=== PATIENT | female | born 1990 | race Hispanic/Latino ===

== ENCOUNTER 2023-02-20 13:57 | Emergency (ER) | payer OTHER, SELFPAY ==
--- NOTE | ~2023-02-20 | CT_ITS ---
EXAMINATION: CT abdomen pelvis w con DATE: 02/20/2023 15:10 INDICATION: Left lower quadrant abdominal pain. TECHNIQUE: Computed tomography (CT) of the abdomen and pelvis was performed with 100 mL Omnipaque-350 intravenous contrast. Automated exposure control and iterative reconstruction technique were employe d. The dose-length product was 181.53 mGy-cm. COMPARISON: None FINDINGS: Lung bases are clear. Heart size is normal. No pericardial or pleural effusion. Liver, gallbladder, s pleen, pancreas, bilateral adrenal glands and kidneys are normal. Bowels are normal with no abnormal wall thickening or obstruction. The appendix is not visualized. No pericecal inflammatory change to s uggest acute appendicitis. Bladder, anteverted uterus and left adnexa are unremarkable. 1.3 cm right ovarian cyst/follicle. Minimal likely physiologic free fluid in the cul-de-sac. No abscess or free in traperitoneal gas. No pathologically enlarged abdominal or pelvic lymphadenopathy. Bones are unremark able. IMPRESSION: 1. No acute intra-abdominal/pelvic process. Reviewed, dictated and finalized at location A.
[2023-02-20 14:01] VITALS: BP 116/83; PULSE 104; RESP 16; TEMP 36.6; O2SAT 100
[2023-02-20 14:22] LABS: Basophils Absolute Auto 0.1 K/mm3 (0.0-0.1); Basophils Percent Auto 0.4 % (0.2-1.2); Eosinophils Absolute Auto 0.1 K/mm3 (0-0.3); Eosinophils Percent Auto 1.1 % (0-4.4); Hemoglobin 14.1 g/dL (12.0-15.0); Immature Granulocyte Absolute 0.05 K/mm3 (0.00-0.031); Immature Granulocyte Percent A 0.4 % (0-0.5); Lymphocytes Absolute Auto 2.03 K/mm3 (0.9-3.2); Lymphocytes Percent Auto 17.8 % (18.3-44.2); Mean Corpuscular HGB Conc 34.4 g/dl (32-36); Mean Corpuscular Hemoglobin 32.4 pg (26-34); Mean Corpuscular Volume 94.3 fl (80-100); Mean Platelet Volume 9.3 fl (7.4-10.4); Monocytes Absolute Auto 0.7 K/mm3 (0.1-0.6); Monocytes Percent Auto 6.2 % (2.6-8.5); Neutrophils Absolute Auto 8.4 K/mm3 (1.3-6.7); Neutrophils Percent Auto 74.1 % (45.5-73.1); Platelet Count Result 262 k/mm3 (150-375); Red Blood Count 4.35 M/mm3 (4.2-5.4); Red Cell Distribution Width 12.4 % (11.5-14.5); White Blood Count 11.4 K/mm3 (4.5-10.0)
[2023-02-20 14:28] LABS: Appearance Urine Clear (Clear); Bacteria Urine None Seen /hpf; Bilirubin Urine Negative (Negative); Blood Urine 2+ (Negative); Color Urine Yellow (Yellow); Glucose Urine UA Negative (Negative); Ketones Urine Negative (Negative); Leukocyte Esterase Ur Negative LEU/UL (Negative); Nitrate Urine Negative (Negative); Non Pathogenic Casts 0-2; Protein Urine Negative (Negative); RBC Urine 21-50 /hpf (0-2); Specific Grav Ur 1.011 (1.001-1.035); Squamous Epithelial Cell Urine Occasional /hpf (Few); Urobilinogen Urine 0.2 mg/dL (<2.0); WBC Urine 0-5 /hpf; pH Urine 7.5 (5.0-9.0)
[2023-02-20 14:32] LABS: Add Urine Microscopic? YES
[2023-02-20 14:38] LABS: Alanine Aminotransferase 21 U/L (6-35); Alkaline Phosphatase 70 U/L (38-126); Anion Gap 7 mmol/L (8-16); Aspartate Amino Transferase 26 U/L (14-36); Bilirubin,Total 0.7 mg/dL (0.2-1.3); Blood Urea Nitrogen 9 mg/dL (7-17); Calcium 9.3 mg/dL (8.4-10.2); Carbon Dioxide 32 mmol/L (22-30); Chloride 100 mmol/L (98-107); Estimated CRCL calculation 90 ml/min; Estimated Glomerular Filt Rate > 60; Glucose 94 mg/dL (65-110); Lipase 47 U/L (23-300); Potassium 3.7 mmol/L (3.4-5.0); Sodium 139 mmol/L (137-145)
[2023-02-20] MEDS: SODIUM CHLORIDE 0.9% IV 1,000 ML 999 ML IV CONT (14:49)
[2023-02-20] MEDS: MORPHINE SULFATE (*CRX) 4 MG/ML INJ 2 MG IV PUSH (14:50)
--- NOTE | 2023-02-20 16:01 | ED.ABDPAIN ---
HPI - Abdominal Pain General Chief Complaint: Abdominal Pain Stated Complaint: abdominal pain Time Seen by Provider: 02/20/23 14:19 History of Present Illness HPI narrative: Patient is a 32-year-old female who presents ER with lower abdominal pain. Waxing waning over the last week. Is been on the left side but is now moved up to the right side. No urinary frequency urgency or dysuria. 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 She has had some minor spotting since then no discharge. Does not believe that this was related to her abdominal discomfort as the pain was before the procedure. Patient is supposed to have an outpatient ultrasound performed to evaluate for cyst. She has history of ovarian cyst which cause pain in the past as well. No history of kidney stone. Related Data Home Medications Medication Instructions Recorded Confirmed No Home Medications 02/01/23 02/01/23 Allergies Allergy/AdvReac Type Severity Reaction Status Date / Time No Known Allergies Allergy Verified 02/20/23 13:57 Review of Systems Review of Systems: All systems reviewed & are unremarkable except as noted in HPI and below Constitutional: Constitutional: Denies chills, Denies fatigue and Denies fever(s) ENT: Denies nasal congestion and Denies sore throat Cardiovascular: Cardiovascular: Denies chest pain Gastrointestinal: Gastrointestinal: Reports abdominal pain, Denies constipation, Denies diarrhea, Denies nausea and Denies vomiting Genitourinary: Genitourinary: Reports abnormal vaginal bleeding, Denies nocturia, Denies dysuria, Reports pelvic pain and Denies flank pain PMFSH Past Medical History Medical History Abnormal Pap smear of cervix Surgical History Surgical History Hx of ovarian cystectomy Social History Social History Smoking status: Never smoker Alcohol intake: current Alcohol use details: occasional Substance use: current Substance use type: marijuana Lack of Transportation: No Lack of Food: Never True Current Housing: I Have Housing Concerned About Future Housing: No Difficulty Paying Gas/Electric Bills: No Difficulty Paying for Meds: No Currently Unemployed: YES Education: Bachelor's Degree Difficulty w/ Childcare or Family Care: No Living arrangements: with family Occupation/Education: unemployed Gender identity (if verbalized by the patient): Female Sexual Orientation (if Verbalized by the Patient): Straight or Heterosexual Exam Narrative: GENERAL: Well-appearing, well-nourished, and in no acute distress. HEAD: Normocephalic, atraumatic. EYES: PERRL and EOMI. ENT: Mucous membranes moist. CHEST: Clear to auscultation. No respiratory distress. HEART: Regular rate and rhythm. Normal peripheral pulses. ABDOMEN: Soft, nontender, nondistended. EXTREMITIES: Normal range of motion. No edema. SKIN: Warm, dry, no rash. NEURO: Alert and oriented x3. PSYCH: Normal mood and affect. Course Course Emergency Course: Patient educated on lab and imaging findings. Patient's abdomen is soft and nontender. 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 Due to lack of pain and nontender abdomen its not felt a emergent ultrasound for ovarian torsion is needed. Educated on return precautions and patient verbalized understanding. Vital Signs Vital signs: Vital Signs Temperature 97.9 F 02/20/23 14:01 Pulse Rate 104 H 02/20/23 14:01 Respiratory Rate 16 02/20/23 14:01 Blood Pressure 116/83 02/20/23 14:01 Pulse Oximetry 100 02/20/23 14:01 Oxygen Delivery Room Air 02/20/23 14:01 Temperature 97.9 F 02/20/23 14:01 Pulse Rate 104 H 02/20/23 14:01 Respiratory Rate 16 02/20/23 14:01 Blood Pressure 116/83 02/20/23 14:01
== END 2023-02-20 16:11 | disposition home or self-care (01) ==
PROVIDERS: Emergency Provider Emergency Medicine
DX: N83.201 Unspecified ovarian cyst, right side (principal)
CPT/HCPCS: 36415; 74177; 80053; 81001; 81025; 83690; 85025; 96361; 96374; 99284; J2270; J7030; Q9967